=== PATIENT | male | born 1945 | race Caucasian/White ===

== ENCOUNTER 2020-12-17 08:33 | Observation (INO) | payer MEDICARE ==
--- NOTE | 2020-12-09 14:49 | HP ---
DATE OF SURGERY: 12/17/2020 HISTORY OF PRESENT ILLNESS: The patient is a 75 year-old male presents with cholecystitis, complains of some right upper quadrant pain with some pain after eating certain foods. PAST MEDICAL HISTORY: Hyperlipidemia. Coronary artery disease. Hypertension. Reflux. PAST SURGICAL HISTORY: Collar bone surgery. Biceps surgery. Rotator cuff. Right eye surgery. Herniated disc surgery. Carotid artery surgery. ALLERGIES: MORPHINE. PERCOCET. NEOSPORIN. POLYSPORIN. LATEX. MEDICATIONS: Amlodipine. Aspirin. Atorvastatin. Plavix. Hydrochlorothiazide. Isosorbide. Losartan. Protonix. Potassium. PreserVision. FAMILY HISTORY: Heart disease, cancer, hypertension. SOCIAL HISTORY: Negative. REVIEW OF SYSTEMS: CONSTITUTIONAL: Denies fever or chills. CHEST: Denies shortness of breath. CVS: Denies chest pain. ABDOMEN: Reports right upper quadrant pain. INTEGUMENTARY: Negative. PHYSICAL EXAMINATION: GENERAL: No acute distress CHEST: Nonlabored. No shortness of breath. CVS: Regular rate and rhythm. ABDOMEN: Soft, nontender to palpation. EXTREMITIES: No edema. NEUROLOGIC: Alert. PSYCHIATRIC: Appropriate. IMPRESSION: Cholecystitis. PLAN: Laparoscopic cholecystectomy with Dr. Joby Reyes. As dictated by Marina Zaman NP.
[~2020-12-17 08:33] MED LIST: Lactated Ringers 1,000 ML IV ONE; Sensorcaine 0.25% 10 ML ONE
[2020-12-17] MEDS ORDERED: Sodium Chloride 0.9% 250 ML 250 ML IV ONE (08:34)
[2020-12-17] MEDS ORDERED: Lactated Ringers 1,000 ML IV ONE (08:38)
[2020-12-17] MEDS ORDERED: MEFOXIN 2 GM PREMIX** 2 GM/50 ML ML IV ONE (08:38)
[2020-12-17] MEDS ORDERED: MEFOXIN 2 GM PREMIX** 2 GM/50 ML ML IV SCH (09:00)
[2020-12-17] MEDS ORDERED: Lactated Ringers 1,000 ML IV SCH ×2 (09:00→14:30)
[2020-12-17] MEDS ORDERED: PHENYLEPHRINE HCL ONE (09:57)
[2020-12-17] MEDS ORDERED: Zemuron 100 MG/10 ML ONE (09:57)
[2020-12-17] MEDS ORDERED: Quelicin Fliptop 200 MG/10 ML ONE (09:57)
[2020-12-17] MEDS ORDERED: Amidate 20 MG/10 ML IV ONE (09:57)
[2020-12-17] MEDS ORDERED: Versed 2 MG/2 ML Injection ONE (09:58)
[2020-12-17] MEDS ORDERED: SUBLIMAZE 250 MCG/5 ML ONE (09:58)
[2020-12-17] MEDS ORDERED: SUBLIMAZE 100 MCG/2 ML ONE ×2 (10:54→11:46)
[2020-12-17] MEDS ORDERED: APRESOLINE 20 MG/ML INJ ONE (10:59)
[2020-12-17] MEDS ORDERED: BREVIBLOC 100 MG/10 ML IV ONE (11:07)
--- NOTE | 2020-12-17 14:39 | OP ---
AMENDED REPORT: SURGERY DATE/TIME: 12/17/2020 1018 PREOPERATIVE DIAGNOSIS: Chronic cholecystitis, cholelithiasis. POSTOPERATIVE DIAGNOSIS: Chronic cholecystitis, cholelithiasis and a little bit of acute cholecystitis. PROCEDURE: Laparoscopic cholecystectomy. SURGEON: Dr. Joby Reyes. BOW MAKING MACHINE OPERATOR: Marina Zaman NP. ANESTHESIA: General with arterial line. COMPLICATIONS: None. CONDITION: Stable. INDICATIONS: A patient requiring cholecystectomy. DESCRIPTION OF PROCEDURE AND FINDINGS: Taken to surgery. An arterial line was started because of his aortic stenosis. Routine prep and drape. Time out performed. Veress needle inserted right upper quadrant. Insufflating pressure 14. Four - 5's. Initially good visualization. Omentum was stuck on the gallbladder. It was taken down. This did pull some edges of Afshin's capsule and these were cauterized. The infundibulum dissected. The cystic duct was thick. The gallbladder was chronically inflamed and slightly acutely inflamed. It was taken at the junction infundibulum/cystic duct with 2.5 vascular staple cartridge. Coming up about 1 cm the cystic artery was taken. Gallbladder rolled out of gallbladder fossa. It was placed in a condom bag without violation and pulled out without violation. One Surgicel was used. The field was dry. CO2 exsufflated. Port hole closure device was used at the epigastric 12 port where the gallbladder had been extracted, this was satisfactory. Skin closed with ama. Sterile dressing applied. The patient tolerated the procedure satisfactorily. Findings discussed with the family in the waiting room.
[2020-12-17 15:39] VITALS: PULSE 74; O2SAT 95
[2020-12-17] MEDS ORDERED: ULTRAM 50 MG PO PRN (15:47)
[2020-12-17 16:01] LABS: INFLUENZA A NEGATIVE (NEGATIVE); INFLUENZA B NEGATIVE (NEGATIVE); RESPIRATORY SYNCTIAL VIRUS NEGATIVE (Negative)
[2020-12-17 16:25] VITALS: BP 127/48
[2020-12-17] MEDS ORDERED: ZOCOR 20MG PO SCH (22:00)
[2020-12-17] MEDS ORDERED: ACYCLOVIR 800 MG PO SCH (22:00)
[2020-12-17] MEDS ORDERED: NON-FORMULARY ITEM (Amlodipine Besylate [Norvasc] 2.5 MG) PO SCH (22:00)
[2020-12-17] MEDS ORDERED: NON-FORMULARY ITEM (Atorvastatin Calcium [Lipitor] 20 MG) PO SCH (22:00)
[2020-12-17] MEDS ORDERED: NORVASC 5 MG PO SCH (22:00)
[2020-12-17] MEDS ORDERED: ZOVIRAX 800 MG PO SCH (22:00)
--- NOTE | 2020-12-18 06:16 | PCM.SSS ---
History of Present Illness - Chief Complaint Chief Complaint: cholelithiasis History of Present Illness: is a 75 year old male. Medications & Allergies Home Medications: Home Medication List Clopidogrel Bisulfate 75 mg [PLAVIX 75 MG Tablet] 75 mg PO DAILY 11/29/13 [History Confirmed 12/17/20] Acyclovir [Zovirax] 800 mg PO HS 12/08/20 [History Confirmed 12/17/20] Amlodipine Besylate [Norvasc] 2.5 mg PO HS 12/08/20 [History Confirmed 12/17/20] Aspirin EC 81 mg [Ecotrin 81 mg] 81 mg PO DAILY 12/08/20 [History Confirmed 12/17/20] Atorvastatin Calcium [Lipitor] 20 mg PO HS 12/08/20 [History Confirmed 12/17/20] Isosorbide Mononitrate [Isosorbide Mononitrate ER] 60 mg PO DAILY 12/08/20 [History Confirmed 12/17/20] Losartan Potassium [Cozaar] 100 mg PO DAILY 12/08/20 [History Confirmed 12/17/20] Potassium Citrate [Potassium Citrate ER] 20 meq PO DAILY 12/08/20 [History Confirmed 12/17/20] Vit C/E/Zn/Coppr/Lutein/Zeaxan [Preservision Areds 2 Softgel] 2 each PO DAILY 12/08/20 [History Confirmed 12/17/20] Tramadol HCl 50 mg [Ultram 50 mg] 50 mg PO Q6HPRN PRN #20 tablet 12/17/20 [Rx] Allergies/Adverse Reactions: Allergies Allergy/AdvReac Type Severity Reaction Status Date / Time acetaminophen [From Percocet] Allergy Intermediate Cough Verified 12/17/20 08:47 oxycodone HCl [From Percocet] Allergy Verified 12/17/20 08:49 morphine AdvReac Severe Nausea Verified 12/17/20 08:47 bacitracin AdvReac Intermediate Rash Verified 12/17/20 08:47 [From Neosporin ([id number])] neomycin AdvReac Intermediate Rash Verified 12/17/20 08:47 [From Neosporin ([id number])] polymyxin B AdvReac Intermediate Rash Verified 12/17/20 08:47 [From Neosporin ([id number])] latex AdvReac Mild Rash Verified 12/17/20 08:49 - Past Medical History Past Medical History: Yes Neurological History: Stroke ENT History: Other Cardiac History: High Cholesterol, Hypertension, Other Respiratory History: No Pertinent History Endocrine Medical History: No Pertinent History Musculoskelatal History: Bone Cancer, Other GI Medical History: GERD History: No Pertinent History Pyscho-Social History: No Pertinent History Male Reproductive Disorders: No Pertinent History Comment: HX ROTATOR CUFF Left AND BICEPS REPAIR 2014 - HAD THERAPY AT THIS FACILITY. 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 HX OF 2 STROKES AFFECTING THE RIGHT ARM AND LEG ABOUT 10 YEARS AGO. HX OF "BYPASS SURGERY" FOR LEFT ARM 2018 HE LOST CIRCULATION LEFT ARM DUE TO RADIATION YEARS AGO FOR THE CANCER. HX OF "HEART MURMUR" SINCE HE WAS 16. FUSION RIGHT THUMB AFTER DISLOCATION/CRUSH INJURY. PATIENT ALSO SCHEDULED FOR CHOLECYSTECTO MY 12/17/20. HX SKIN CANCER MULTIPLE AREAS. NO VISION RIGHT EYE DUE TO REMOVAL AFTER SHINGLES.Right carotid re-routed to left axillary area, Lef carotid stent x two - Past Surgical History Past Surgical History: Yes Neuro Surgical History: No Pertinent History Cardiac History: Cardiac Catheterization Respiratory Surgery: No Pertinent History GI Surgical History: No Pertinent History Genitourinary Surgical Hx: No Pertinent History Musculskeletal Surgical Hx: Other Male Surgical History: No Pertinent History Other Surgical History: loss of right eye ,BONE REMOVED FROM LT CLAVICLE,. KIDNEY STONE, See surgeries above - Social History Smoking Status: Never smoker Exposure to second hand smoke: Yes Alcohol: None Drug Use: none - Physical Exam Vital Signs: Vital Signs - 24 hr Temp Pulse Resp BP BP Pulse Ox 12/17/20 16:24 127/48 12/17/20 15:39 123/47 12/17/20 14:37 98.4 F 74 16 114/57 95 12/17/20 14:21 98.6 F 60 16 110/66 100 12/17/20 14:00 98.1 F 61 16 96/46 96 12/17/20 13:20 98 F 53 L 18 106/42 96 12/17/20 12:30 98.1 F 59 L 18 111/64 97 12/17/20 12:25 98.2 F 54 L 16 110/64 97 12/17/20 12:15 98.4 F 60 18 106/42 97 12/17/20 12:10 98.2 F 63 16 109/61 97 12/17/20 09:11 98 F 65 16 143/70 99 12/17/20 09:03 98 F 65 16 143/70 99 Results - Labs Lab/Micro Results: Lab Results-Last 24 Hours 12/17/20 Range/Units 15:21 Influenza Type A Ag NEGATIVE (NEGATIVE) Influenza Type B Ag NEGATIVE (NEGATIVE) RSV (PCR) NEGATIVE (Negative) SARS-CoV-2 (PCR) NEGATIVE (NEGATIVE) Hospital Summary - Vitals & Intake/Output Vital Signs: Vital Signs Temperature 98.4 F 12/17/20 14:37 Pulse Rate 74 12/17/20 14:37 Respiratory Rate 16 12/17/20 14:37 Blood Pressure 127/48 12/17/20 16:24 O2 Sat by Pulse Oximetry 95 12/17/20 14:37 Intake & Output: Intake & Output 12/15/20 12/16/20 12/17/20 12/18/20 11:59 11:59 11:59 11:59 Weight 73.1 kg - Lab Lab Results-Last 24 Hrs: Lab Results-Last 24 Hours 12/17/20 Range/Units 15:21 Influenza Type A Ag NEGATIVE (NEGATIVE) Influenza Type B Ag NEGATIVE (NEGATIVE) RSV (PCR) NEGATIVE (Negative) SARS-CoV-2 (PCR) NEGATIVE (NEGATIVE) - Discharge Disposition: Home, Self-Care Condition: Stable Prescriptions: New Tramadol HCl 50 mg [Ultram 50 mg] 50 mg PO Q6HPRN PRN #20 tablet PRN Reason: Pain Continue Clopidogrel Bisulfate 75 mg [PLAVIX 75 MG Tablet] 75 mg PO DAILY Vit C/E/Zn/Coppr/Lutein/Zeaxan [Preservision Areds 2 Softgel] 2 each PO DAILY Potassium Citrate [Potassium Citrate ER] 20 meq PO DAILY Acyclovir [Zovirax] 800 mg PO HS Aspirin EC 81 mg [Ecotrin 81 mg] 81 mg PO DAILY Amlodipine Besylate [Norvasc] 2.5 mg PO HS Losartan Potassium [Cozaar] 100 mg PO DAILY Atorvastatin Calcium [Lipitor] 20 mg PO HS Isosorbide Mononitrate [Isosorbide Mononitrate ER] 60 mg PO DAILY Instructions: Cholecystectomy, Laparoscopic Surgery, Low Blood Pressure (DC) Additional Instructions: DR DE LA PAZ APPOINTMENT ALREADY SCHEDULED Follow up with: RUTH MCKAY MD [Primary Care Provider] - Forms: Discharge Instructions
[2020-12-18] MEDS ORDERED: Imdur 60MG PO SCH (10:00)
[2020-12-18] MEDS ORDERED: [UNRECOGNIZED DRUG - OTHER] PO SCH (10:00)
[2020-12-18] MEDS ORDERED: PLAVIX 75 MG Tablet PO SCH (10:00)
[2020-12-18] MEDS ORDERED: Klor Con 10 MEQ PO SCH (10:00)
[2020-12-18] MEDS ORDERED: NON-FORMULARY ITEM (Losartan Potassium [Cozaar] 100 MG) PO SCH (10:00)
[2020-12-18] MEDS ORDERED: ECOTRIN 81 MG PO SCH (10:00)
[2020-12-18] MEDS ORDERED: Ocuvite Tablet PO SCH (10:00)
[2020-12-18] MEDS ORDERED: POTASSIUM CITRATE 20 MEQ PO SCH (10:00)
[2020-12-18] MEDS ORDERED: Cozaar 50 MG PO SCH (10:00)
== END 2020-12-17 16:35 | disposition home or self-care (01) ==
LOC: SDC 08:33 → MED SURG 14:37
PROVIDERS: ADMIT Family Medicine; ATTEND Family Medicine
DX: K80.12 Calculus of gallbladder with acute and chronic cholecystitis without obstruction (principal); I35.0 Nonrheumatic aortic (valve) stenosis; Z20.828 Contact with and (suspected) exposure to other viral communicable diseases; I10 Essential (primary) hypertension; E78.5 Hyperlipidemia, unspecified; Z79.899 Other long term (current) drug therapy; Z79.01 Long term (current) use of anticoagulants; Z86.79 Personal history of other diseases of the circulatory system
CPT/HCPCS: 0241U; 47562; 36620; 93268; 99100; G0378; J0330; J0360; J0694; J2250; J2370; J3010